=== PATIENT | female | born 1995 | race Two or more races ===

== ENCOUNTER 2016-12-15 08:22 | Emergency (ER) | payer SELFPAY ==
[2016-12-15] MEDS ORDERED: LACTATED RINGERS 1,000 ML ONE (09:20)
[2016-12-15 09:49] LABS: ABSOLUTE NEUTROPHIL COUNT 9.8 K/mm3 (1.8-7.7); BASO % 0.3 % (0.2-1.0); EOS # 0.1 (0.0-0.5); EOS % 0.7 % (0.9-2.9); HEMATOCRIT 37.3 % (37.0-47.0); HEMOGLOBIN 12.1 gm/l (12.0-16.0); IMM NEUT% 0.2 % (0-1); LYMPH # 1.1 (1.0-4.8); LYMPH % 9.4 % (15-45); MEAN CELL VOLUME 80.2 fl (81.0-99.0); MEAN CORPUSCULAR HGB CONC 32.4 g/dl (33.0-37.0); MEAN PLATELET VOLUME 9.7 fl (7.4-10.4); MONO # 0.6 (0.0-0.8); NEUT % 84.4 % (43-75); PLATELET COUNT 371 K/mm3 (130-400); RED CELL DISTRIBUTION WIDTH 13.6 % (11.5-14.5)
[2016-12-15 09:51] LABS: ALBUMIN 4.1 gm/dL (3.5-5.7)
== END 2016-12-15 11:23 | disposition home or self-care (01) ==
LOC: ED 08:22
DX: R11.2 Nausea with vomiting, unspecified (principal); R19.7 Diarrhea, unspecified